=== PATIENT | male | born 1945 | race Caucasian/White ===

== ENCOUNTER 2016-09-27 18:26 | Inpatient (IN) | payer OTHER, MEDICARE ==
[~2016-09-27] VITALS: Ht 182.9 cm; Wt 102.2 kg
[2016-09-27 18:38] VITALS: BP 167/81; PULSE 66; RESP 16; O2SAT 97
--- NOTE | 2016-09-27 18:52 | ED.REPORT ---
HPI-General Illness Date of Service Sep 27, 2016 ED Provider: Dr. Villegas Pt is a 71 y/o male w/ a hx of BPH presenting to the ED due to flu-like symptoms onset this morning. Pt recently had a TURP procedure performed on Sep 19, [address] Jaeger of [facility] and had his urinary catheter removed yesterday. This morning he began experiencing dysuria, urinary frequency , urinary urgency, myalgias, fever, chills, dry cough, nausea, mild headache, irregular heart palpations. He denies vomiting, diarrhea. He denies any history of irregular heart rhythm. Nursing Notes Stated Complaint: CHEST,NECK,LEG PAIN POST SURGERY Chief Complaint: General Complaint Nursing Notes Reviewed: Yes Allergies: Coded Allergies: allopurinol (Verified Adverse Reaction, Intermediate, NAUSEA, 09/28/16) Uncoded Allergies: ALLUPURINAL (Adverse Reaction, Intermediate, nausea, 09/27/16) Scheduled Aspirin (Aspirin) 81 Mg Tablet 81 MG PO DAILY Atenolol (Atenolol) 100 Mg Tablet 100 MG PO DAILY Cephalexin (Keflex) 500 Mg Capsule 500 MG PO QID Lisinopril (Lisinopril) 20 Mg Tablet 20 MG PO DAILY Lovastatin (Lovastatin) 20 Mg Tablet 20 MG PO HS Omeprazole (Omeprazole) 20 Mg Capsule.dr 20 MG PO DAILY Ondansetron (Ondansetron) 8 Mg Tablet 8 MG PO TID Tamsulosin (Flomax) 0.4 Mg Capsule 0.8 MG PO HS Scheduled PRN Ibuprofen (Ibuprofen) 200 Mg Capsule 200 MG PO QID PRN PRN For Pain General Time Seen by MD: 18:52 Chief Complaint Other (Flu-like) Hx Obtained From: Patient Arrived By: Walk-in Sudden in Onset?: No Onset Occurred: 13 - 16 hours ago Symptom Duration: Since onset Quality: Aching (diffuse) Severity: Current: Mild Severity: Maximum: Mild Recent Healthcare: Previous surgery Past Medical History Past Medical History BPH s/p TURP Benign lung tumor s/p surgical removal Hx SBO Past Surgical History Benign lung tumor removal TURP Partial small bowel resection Smoking History Unknown if Ever Smoker Social History Other Social History: Good social support Ambulatory Status Independent Review of Systems Full Review of Systems Constitutional: Reports: Chills, Fever, Weakness - generalized Respiratory: Reports: Non-productive cough GI: Reports: Nausea, Denies: Diarrhea, Vomiting Male: Reports Dysuria, Reports Urinary frequency, Reports Urinary urgency Musculoskeletal: Reports: Myalgia Neurologic: Reports: Headache Complete sys rev & neg: except as marked. Physical Exam Vital Signs Vital Signs Date Time Temp Pulse Resp B/P Pulse Ox O2 Delivery O2 Flow Rate FiO2 09/27/16 22:51 36.9 93 18 103/66 93 Room Air 09/27/16 21:22 37 111 16 108/62 93 Room Air 09/27/16 18:38 38.8 66 16 167/81 97 Room Air Initial VS: Reviewed, Vital signs abnormal Head / Eyes: Atraumatic, Normocephalic, PERRL ENT: Mucous membranes moist, Conjunctiva normal, No scleral icterus Neck: Supple, Full range of motion Respiratory: Breath sounds normal, Clear to auscultation, No respiratory distress Extremities: Vascular intact, Neuro intact, No swelling, No tenderness Skin: Warm, Dry Neurologic: Alert, Oriented, Nonfocal Psychiatric: Mood/affect normal, Behavior normal, Normal thought content General/Constitutional: Awake, Alert, No acute distress, Cooperative, Not toxic appearing Cardiovascular: Heart sounds NL, No gallop, No murmurs, No rubs, Cap refill not delayed, Peripheral circulation NL Heart Rate / Rhythm: Positive: Irregular rhythm, Tachycardia Abdomen: Atraumatic, Soft, Non-tender, No guarding, No distention, No palpable mass Tenderness/Guarding/Rebound: Negative: Tender flank L, Tender flank R Back: Full range of motion, Painless range of motion, No CVA tenderness Interpretation & Diagnostics Lab Results Interpretation Result Diagram: 10/01/16 0540 10/01/16 0540 Test 09/27/16 19:05 Urine Color Yellow (YELLOW) Urine Appearance Cloudy (CLEAR,HAZY) Urine pH 7.5 (5.0-8.0) Urine Specific [place] 1.020 (1.003-1.035) Urine Protein 100mg/dL (NEG,TRACE) Urine Glucose (UA) Negativemg/dL (NEGATIVE) Urine Ketones Negativemg/dL (NEGATIVE) Urine Occult Blood Large (NEGATIVE) Urine Nitrite Negative (NEGATIVE) Urine Bilirubin Negative (NEGATIVE) Urine Urobilinogen Normalmg/dL (NORMAL) Urine Leukocyte Esterase Moderate (NEGATIVE) Urine RBC 3-10/hpf (0-2) Urine WBC 6-10/hpf (0-5) Urine Epithelial Cells None/hpf (NONE-MOD) Urine Crystals None seen (NONE SEEN) Urine Bacteria Few/hpf (NONE-FEW) Urine Hyaline Casts None/lpf (NONE) Urine Granular Casts None seen (NONE SEEN) Urine Waxy Casts None seen (NONE SEEN) Urine Red Blood Cell Casts None seen (NONE SEEN) Urine White Blood Cell Casts None seen (NONE SEEN) Urine Mucus None seen (None Seen) Urine Trichomonas None seen (NONE SEEN) Urine Yeast None (NONE SEEN) Urinalysis Comment None Urine Culture Reflexed Indicated Pro-B-Type Natriuretic Peptide 154.8pg/mL (0-376) Hold [place] Top Tube Received (Received) ECG Interpretation ECG Interpretation: Sinus tachycardia rate 127 Supraventricular bigeminy RBBB LAFB Time: 19:44 Interpreted by: ED physician Normal ECG Interpretation: No acute ischemic changes X-Ray Chest Interpretation Chest Xray Interpretation: IMPRESSION: Decreased lung volumes, without acute cardiopulmonary disease. Dictated by: Thomas Cehn M.D. on 09/27/2016 at 20:20 Approved by: Thomas Chen M.D. on 09/27/2016 at 20:20 View: Portable, AP & lat Interpretation / Wet Read by: Interpret - Radiologist CT Abd / Pelvis Interpretation Conclusion: Findings likely consistent with cystitis. Air in the bladder likely related to the patient's recent surgery. Nodular enlarged prostate which appears to project into the lumen of the bladder. Recommend followup to exclude neoplasm. Left adrenal mass which requires followup. Other findings as noted above. Transmitted to the ED by Ed Lawson MD [id number] Study type: Abdominal CT IV contrast Interpretation / Wet Read by: Interpret - Radiologist, Discussed w radiologist Re-Eval/Medical Decision Time of Eval: 22:08 Patient Status: Condition improved, Moderate relief Re-Evaluation/Progress Note: Pt rechecked. He is feeling better but does not feel well enough to go home. Remains tachycardic at rate 90-110 and hypotensive at systolic 100-110. O2 sat 93% on room air. I recommended admission. Pt understands and agrees with plan for admission. All questions addressed. Consultation #1: Consulted With: Urology Call Returned at: 23:36 Swing Saw Operator: Agrees with eval, Agrees with plan Note: Discussed case with Urologist Dr. Diehl, who is environmental engineer scientist for Dr. Jaeger. Agrees with plan for admit and antibiotic choice. He will see the patient for outpatient follow-up once discharged. Consultation #2: Referral / Consult Name: Analilia Iraheta MD Consulted With: Hospitalist Call Returned at: 23:46 Swing Saw Operator: Will see patient, Agrees with eval, Agrees with plan, Accepts admit Note: Case discussed. Counseled Regarding: Diagnosis, Lab results, Need for admission Discharge & Departure Primary Impression: Sepsis Sepsis type: sepsis due to unspecified organism Qualified Code: A41.9 - Sepsis, unspecified organism Additional Impressions: Cystitis Supraventricular bigeminy Right bundle branch block Disposition: ADMITTED TO HOSPITAL Discharge Condition All VS Reviewed: Yes Condition: Stable Referrals: Abraham Paul MD (PCP) Nick Attestation Portions of this note were transcribed by Kamron Avila. I, Dr. Villegas personally performed the history, physical exam and medical decision-making; I reviewed and confirmed the accuracy of the information in the transcribed note. Nick Mendieta, 09/27/161934 copies to: Abraham Paul MD, Gary R DO Sep 27, 2016 18:52 KAMRON AVILA Sep 27, 2016 19:47 Hold [place] Top Tube Received (Received) ECG Interpretation ECG Interpretation: Sinus tachycardia rate 127 Supraventricular bigeminy RBBB LAFB Time: 19:44 Interpreted by: ED physician Normal ECG Interpretation: No acute ischemic changes X-Ray Chest Interpretation Chest Xray Interpretation: IMPRESSION: Decreased lung volumes, without acute cardiopulmonary disease. Dictated by: Thomas Chen M.D. on 09/27/2016 at 20:20 Approved by: Thomas Chen M.D. on 09/27/2016 at 20:20 View: Portable, AP & lat Interpretation / Wet Read by: Interpret - Radiologist CT Abd / Pelvis Interpretation Conclusion: Findings likely consistent with cystitis. Air in the bladder likely related to the patient's recent surgery. Nodular enlarged prostate which appears to project into the lumen of the bladder. Recommend followup to exclude neoplasm. Left adrenal mass which requires followup. Other findings as noted above. Transmitted to the ED by Ed Lawson MD [id number] Study type: Abdominal CT IV contrast Interpretation / Wet Read by: Interpret - Radiologist, Discussed w radiologist Re-Eval/Medical Decision Time of Eval: 22:08 Patient Status: Condition improved, Moderate relief Re-Evaluation/Progress Note: Pt rechecked. He is feeling better but does not feel well enough to go home. Remains tachycardic at rate 90-110 and hypotensive at systolic 100-110. O2 sat 93% on room air. I recommended admission. Pt understands and agrees with plan for admission. All questions addressed. Consultation #1: Consulted With: Urology Call Returned at: 23:36 Swing Saw Operator: Agrees with eval, Agrees with plan Note: Discussed case with Urologist Dr. Diehl, who is environmental engineer scientist for Dr. Jaeger. Agrees with plan for admit and antibiotic choice. He will see the patient for outpatient follow-up once discharged. Consultation #2: Referral / Consult Name: Analilia Iraheta MD Consulted With: Hospitalist Call Returned at: 23:46 Swing Saw Operator: Will see patient, Agrees with eval, Agrees with plan, Accepts admit Note: Case discussed. Counseled Regarding: Diagnosis, Lab results, Need for admission Discharge & Departure Primary Impression: Sepsis Sepsis type: sepsis due to unspecified organism Qualified Code: A41.9 - Sepsis, unspecified organism Additional Impressions: Cystitis Supraventricular bigeminy Right bundle branch block Disposition: ADMITTED TO HOSPITAL Discharge Condition All VS Reviewed: Yes Condition: Stable Referrals: Abraham Paul MD (PCP) Nick Attestation Portions of this note were transcribed by Kamron Avila. I, Dr. Villegas personally performed the history, physical exam and medical decision-making; I reviewed and confirmed the accuracy of the information in the transcribed note. Nick Mendieta, 09/27/161934 copies to: Abraham Paul MD, Gary R DO Sep 27, 2016 18:52 KAMRON AVILA Sep 27, 2016 19:47
[2016-09-27 19:14] LABS: BASOPHILS % (AUTO) 0.1 % (0-3); EOSINOPHILS % (AUTO) 0.1 % (0-5); MONOCYTES % (AUTO) 7.7 % (4-12); Mean Corpuscular Hemoglobin 27.9 pg (27.0-35.0); Mean Corpuscular Volume 83.8 fL (81-100); NEUTROPHILS % (AUTO) 87.7 % (40-74); Platelet Count 229 bil/L (150-400)
[2016-09-27] MEDS ORDERED: cefTRIAXone Inj 1,000 MG in IV Premix 1 EACH IV ONE (19:35)
[2016-09-27] MEDS ORDERED: 0.9% Sodium Chloride 1,000 ML IV ONE ×2 (19:49→22:11)
[2016-09-27 20:06] LABS: APPEARANCE,URINE CLOUDY (CLEAR,HAZY); COLOR,URINE YELLOW (YELLOW); OCCULT BLOOD,URINE LARGE (NEGATIVE); PH,URINE 7.5 (5.0-8.0); UROBILINOGEN,URINE NORMAL (NORMAL)
[2016-09-27 20:17] LABS: TROPONIN T < 0.010 ug/L (0.0-0.011)
--- NOTE | 2016-09-27 20:22 | DRSVH ---
PROCEDURE: X-RAY CHEST, TWO VIEWS ([id number]) INDICATIONS: 71 year-old male with fever and cough for several days. TECHNIQUE: 2 views of the chest were acquired. COMPARISON: None. FINDINGS: Surgical changes and devices: None. Lungs and pleura: No pleural effusions or pneumothorax. Lungs are clear. Lung volumes are decrease d, with basilar bronchovascular crowding. Mediastinum: Mediastinal contours are normal. Heart size is normal. Bones and chest wall: No suspicious bony abnormalities. Soft tissues appear unremarkable. IMPRESSION: Decreased lung volumes, without acute cardiopulmonary disease. Dictated by: Thomas Chen M.D. on 09/27/2016 at 20:20 Approved by: Thomas Chen M.D. on 09/27/2016 at 20:20
[2016-09-27 21:22] VITALS: BP 108/62; PULSE 111; RESP 16; O2SAT 93
[2016-09-27] MEDS ORDERED: Ondansetron 2 mg/mL 2 mL Inj IVPUSH ONE (21:25)
[2016-09-27 22:51] VITALS: BP 103/66; PULSE 93; RESP 18; O2SAT 93
[2016-09-28] VITALS (8 sets, daily range): BP systolic 107–135; BP diastolic 56–78; PULSE 67–80; RESP 18–20; O2SAT 91–96
[2016-09-28] MEDS ORDERED: 0.9% Sodium Chloride 1,000 ML IV SCH (00:53)
[2016-09-28] MEDS ORDERED: Ondansetron 2 mg/mL 2 mL Inj IVPUSH PRN (00:55)
[2016-09-28] MEDS ORDERED: Vancomycin Dose per Pharmacist XX SCH (00:55)
[2016-09-28] MEDS ORDERED: Alum-Mag Hydrox-Simeth 30 mL Suspension PO PRN (00:55)
[2016-09-28] MEDS ORDERED: Polyethylene Glycol (PEG) 17 Gm Powder PO PRN (00:55)
[2016-09-28] MEDS: 0.9% Sodium Chloride 1,000 ML IV SCH ×3 (01:30→23:27)
[2016-09-28] MEDS: Heparin 5,000 Unit/mL Inj SUBQ SCH ×4 (01:31→23:27)
--- NOTE | 2016-09-28 01:32 | PCM.HPMED ---
Subjective Date of Service Sep 28, 2016 Primary Provider: Admitting Physician: Analilia Iraheta MD Primary Care Physician: Abraham Paul MD Attending Physician: Analilia Iraheta MD Admit Status: From the Emergency Department, Full Admit, Remote Telemetry Chief Complaint: Fevers and chills which started yesterday History of Present Illness: This is a 71-year-old male who has a history of BPH who had a TURP procedure done on September [address] Jaeger of [facility]. He had his Agu[place] catheter removed today prior to admission. He had been on 6 weeks of by mouth Cipro and took his last dose yesterday. He does have some urinary frequency and burning although was not sure whether that is related to his recent procedure. He has had some mild nausea denies any vomiting denies any alteration in bowel movements. Denies any abdominal pain. His evaluation in the emergency room includes a white blood cell count of 21.2 with 88% polys 4% lymphs. His urine shows cloudy appearance large occult blood moderate leukocyte esterase 3-10 RBCs, 6-10 WBCs no epithelial cells and few bacteria. Lactate level was noted to be 1.6 and troponin less than 0.010. He does complain of a dry cough but he notes that is up from being on lisinopril. He also had a chest x-ray which did not show any acute cardiopulmonary disease. He did have CT of abdomen and pelvis with IV contrast which revealed findings likely consistent with cystitis. There was air in the bladder likely related to the patient's recent surgery. There is nodular enlarged prostate which appears to project into the lumen of the bladder. There is a left adrenal mass seen which radiology recommended follow-up on final report is pending. Review of Systems: All other review of systems are reviewed and are negative except for as in history of present illness Allergies Coded Allergies: allopurinol (Unverified Adverse Reaction, Intermediate, NAUSEA, 09/28/16) Uncoded Allergies: ALLUPURINAL (Adverse Reaction, Intermediate, nausea, 09/27/16) Home Medications Medication reconciliation is pending at the time of this dictation PMH Past Medical History BPH s/p TURP Benign lung tumor s/p surgical removal Hx SBO Past Surgical History Benign lung tumor removal TURP Partial small bowel resection Family History Patient denies any cardiac, neurological respiratory family medical history Social History Hx Alcohol Use: No Hx Substance Use: No Smoking Status: Unknown if Ever Smoker Living Arrangement: with Family Exam Vital Signs Vital Sign - Last Date Time Temp Pulse Resp B/P Pulse Ox O2 Delivery O2 Flow Rate FiO2 09/27/16 22:51 36.9 93 18 103/66 93 Room Air Intake and Output 09/27/16 09/27/16 09/28/16 Cumulative From/Thru 15:00 23:00 07:00 09/27/16 18:38 - 09/27/16 22:32 Intake Total 2000 ml 2000 ml Balance 2000 ml 2000 ml Intake IV Total 2000 ml 2000 ml Exam Constitutional: Elderly man in no acute distress Head: Normocephalic atraumatic Eyes: PERRLA DC EOMI Mouth: No lesions noted Neck: Carotids 2+ over 4 the upper wheeze bilaterally Chest: Clear to auscultation Cor tachycardic regular rhythm S1-S2 without murmur Abdomen: Soft, nontender bowel sounds present Extremities: No pedal edema noted Skin: No rashes Psych: Mood and affect are appropriate Neuro: Alert and oriented 3, motor and sensory are intact bilaterally Lab and Diagnostics Labs Laboratory Tests 72 Hours Test 09/27/16 19:05 White Blood Count 21.2th/mm3 (3.8-10.1) Red Blood Count 4.87mil/mm3 (4.40-5.80) Hemoglobin 13.6g/dL (13.8-17.2) Hematocrit 40.8% (41.0-50.0) Mean Corpuscular Volume 83.8fL (81-100) Mean Corpuscular Hemoglobin 27.9pg (27.0-35.0) Mean Corpuscular Hemoglobin Concent 33.3% (32.0-37.0) Red Cell Distribution Width 14.2% (12.3-15.4) Platelet Count 229bil/L (150-400) Neutrophils (%) (Auto) 87.7% (40-74) Lymphocytes (%) (Auto) 4.1% (14-46) Monocytes (%) (Auto) 7.7% (4-12) Eosinophils (%) (Auto) 0.1% (0-5) Basophils (%) (Auto) 0.1% (0-3) Urine Color Yellow (YELLOW) Urine Appearance Cloudy (CLEAR,HAZY) Urine pH 7.5 (5.0-8.0) Urine Specific [place] 1.020 (1.003-1.035) Urine Protein 100mg/dL (NEG,TRACE) Urine Glucose (UA) Negativemg/dL (NEGATIVE) Urine Ketones Negativemg/dL (NEGATIVE) Urine Occult Blood Large (NEGATIVE) Urine Nitrite Negative (NEGATIVE) Urine Bilirubin Negative (NEGATIVE) Urine Urobilinogen Normalmg/dL (NORMAL) Urine Leukocyte Esterase Moderate (NEGATIVE) Urine RBC 3-10/hpf (0-2) Urine WBC 6-10/hpf (0-5) Urine Epithelial Cells None/hpf (NONE-MOD) Urine Crystals None seen (NONE SEEN) Urine Bacteria Few/hpf (NONE-FEW) Urine Hyaline Casts None/lpf (NONE) Urine Granular Casts None seen (NONE SEEN) Urine Waxy Casts None seen (NONE SEEN) Urine Red Blood Cell Casts None seen (NONE SEEN) Urine White Blood Cell Casts None seen (NONE SEEN) Urine Mucus None seen (None Seen) Urine Trichomonas None seen (NONE SEEN) Urine Yeast None (NONE SEEN) Urinalysis Comment None Urine Culture Reflexed Indicated Sodium Level 135mEq/L (134-144) Potassium Level 3.9mEq/L (3.5-5.2) Chloride Level 99mEq/L (97-108) Carbon Dioxide Level 23mmol/L (18-29) Blood Urea Nitrogen 14mg/dL (8-27) Creatinine 0.96mg/dL (0.76-1.27) Estimat Glomerular Filtration Rate 83mL/min (>59) Glucose Level 145mg/dL (60-99) Lactic Acid Level 1.6mmol/L (0.4-2.0) Calcium Level 9.4mg/dL (8.5-10.1) Total Bilirubin 0.9mg/dL (0.0-1.2) Aspartate Amino Transf (AST/SGOT) 28U/L (0-50) Alanine Aminotransferase (ALT/SGPT) 38U/L (0-44) Alkaline Phosphatase 91U/L (25-160) Troponin T < 0.010ug/L (0.0-0.011) Pro-B-Type Natriuretic Peptide 154.8pg/mL (0-376) Total Protein 6.6g/dL (6.4-8.4) Albumin 3.7g/dL (3.4-5.0) Hold [place]ev[place] Top Tube Received (Received) Result Diagram: 09/27/16190409/27/161904 X-Rays, CTs and MRIs Patient Name: JUAN GARCIA MR#: [id number] [place] [facility] [place] Phys: He Villegas Date of Service: 09/27/161948 PROCEDURE: X-RAY CHEST, TWO VIEWS ([id number]) INDICATIONS: 71 year-old male with fever and cough for several days. TECHNIQUE: 2 views of the chest were acquired. COMPARISON: None. FINDINGS: Surgical changes and devices: None. Lungs and pleura: No pleural effusions or pneumothorax. Lungs are clear. Lung volumes are decreased, with basilar bronchovascular crowding. Mediastinum: Mediastinal contours are normal. Heart size is normal. Bones and chest wall: No suspicious bony abnormalities. Soft tissues appear unremarkable. IMPRESSION: Decreased lung volumes, without acute cardiopulmonary disease. Dictated by: Thomas Chen M.D. on 09/27/2016 at 20:20 Approved by: Thomas Chen M.D. on 09/27/2016 at 20:20 12-lead ECG Twelve-lead EKG shows sinus tachycardia rate of 127 there appears to be some supraventricular bigeminy noted along with right bundle branch block and left anterior fascicular block. No old EKG present for comparison. Assessment & Plan # Sepsis with urinary tract infection as source, acute, present on admission Placed on sepsis protocol check serial lactic acid levels first one was normal. IV fluid hydration We will treat with IV Rocephin and IV vancomycin as patient recently had a urological procedure done. Blood cultures 2. Urine for culture and sensitivities Patient meets sepsis criteria as he is tachycardic, febrile along with significantly elevated white count. Patient was discussed by the ER doctor with Dr. Leach covering for urology and recommended IV antibiotics. Dr. Leach agreed with IV Rocephin. # Hypertension, present on admission, chronic Overweight medication reconciliation to put on his usual home meds. Will monitor blood pressures. # DVT prophylaxis Placed on subcutaneous heparin # CODE STATUS Patient is full code. Pain Evaluation: Adequate Pain Control VTE Prophylaxis: Sub-Q Heparin (Unfractionated) VTE Mechanical Devices: Intermittant Pneumatic CD Resuscitation Status: CPR: Attempt Resuscitation Time spent 60 minutes Analilia Iraheta MD Sep 28, 2016 01:32
[2016-09-28 01:53] LABS: BASOPHILS % (AUTO) 0 % (0-3); EOSINOPHILS % (AUTO) 0 % (0-5); MONOCYTES % (AUTO) 8.7 % (4-12); Mean Corpuscular Volume 84.7 fL (81-100); NEUTROPHILS % (AUTO) 87.6 % (40-74); Platelet Count 215 bil/L (150-400)
[2016-09-28 02:39] LABS: Magnesium 1.5 mg/dL (1.6-2.6); Phosphorus 3.2 mg/dL (2.5-4.9); TROPONIN T 0.01 ug/L (0.0-0.011)
--- NOTE | 2016-09-28 03:36 | PCM.CONPHA ---
Subjective Date of Service: Sep 28, 2016 Requesting Provider: Analilia Iraheta MD Reason for Pharmacy Consult: Vancomycin Dosing Objective Vital Signs Date Time Temp Pulse Resp B/P Pulse Ox O2 Delivery O2 Flow Rate FiO2 09/28/16 01:27 36.7 78 19 107/63 91 Room Air 09/28/16 01:15 36.7 80 18 126/58 95 Room Air 09/27/16 22:51 36.9 93 18 103/66 93 Room Air 09/27/16 21:22 37 111 16 108/62 93 Room Air 09/27/16 18:38 38.8 66 16 167/81 97 Room Air Intake and Output 09/26/16 09/27/16 09/28/16 00:00 00:00 00:00 Intake Total 2000 ml Balance 2000 ml Weight (Kilograms): 101.600 Height (Feet): 6 Height (Inches): 0.00 Test 09/27/16 19:05 09/28/16 01:40 09/28/16 02:18 Urine Color Yellow (YELLOW) Urine Appearance Cloudy (CLEAR,HAZY) Urine pH 7.5 (5.0-8.0) Urine Specific [place] 1.020 (1.003-1.035) Urine Protein 100mg/dL (NEG,TRACE) Urine Glucose (UA) Negativemg/dL (NEGATIVE) Urine Ketones Negativemg/dL (NEGATIVE) Urine Occult Blood Large (NEGATIVE) Urine Nitrite Negative (NEGATIVE) Urine Bilirubin Negative (NEGATIVE) Urine Urobilinogen Normalmg/dL (NORMAL) Urine Leukocyte Esterase Moderate (NEGATIVE) Urine RBC 3-10/hpf (0-2) Urine WBC 6-10/hpf (0-5) Urine Epithelial Cells None/hpf (NONE-MOD) Urine Crystals None seen (NONE SEEN) Urine Bacteria Few/hpf (NONE-FEW) Urine Hyaline Casts None/lpf (NONE) Urine Granular Casts None seen (NONE SEEN) Urine Waxy Casts None seen (NONE SEEN) Urine Red Blood Cell Casts None seen (NONE SEEN) Urine White Blood Cell Casts None seen (NONE SEEN) Urine Mucus None seen (None Seen) Urine Trichomonas None seen (NONE SEEN) Urine Yeast None (NONE SEEN) Urinalysis Comment None Urine Culture Reflexed Indicated Pro-B-Type Natriuretic Peptide 154.8pg/mL (0-376) Hold [place] Top Tube Received (Received) White Blood Count 25.8th/mm3 (3.8-10.1) Red Blood Count 4.32mil/mm3 (4.40-5.80) Hemoglobin 12.1g/dL (13.8-17.2) Hematocrit 36.6% (41.0-50.0) Mean Corpuscular Volume 84.7fL (81-100) Mean Corpuscular Hemoglobin 28.0pg (27.0-35.0) Mean Corpuscular Hemoglobin Concent 33.1% (32.0-37.0) Red Cell Distribution Width 14.1% (12.3-15.4) Platelet Count 215bil/L (150-400) Neutrophils (%) (Auto) 87.6% (40-74) Lymphocytes (%) (Auto) 3.2% (14-46) Monocytes (%) (Auto) 8.7% (4-12) Eosinophils (%) (Auto) 0% (0-5) Basophils (%) (Auto) 0% (0-3) Sodium Level 137mEq/L (134-144) Potassium Level 4.0mEq/L (3.5-5.2) Chloride Level 102mEq/L (97-108) Carbon Dioxide Level 23mmol/L (18-29) Blood Urea Nitrogen 12mg/dL (8-27) Creatinine 0.96mg/dL (0.76-1.27) Estimat Glomerular Filtration Rate 83mL/min (>59) Glucose Level 135mg/dL (60-99) Calcium Level 8.8mg/dL (8.5-10.1) Phosphorus Level 3.2mg/dL (2.5-4.9) Magnesium Level 1.5mg/dL (1.6-2.6) Total Bilirubin 1.4mg/dL (0.0-1.2) Aspartate Amino Transf (AST/SGOT) 25U/L (0-50) Alanine Aminotransferase (ALT/SGPT) 40U/L (0-44) Alkaline Phosphatase 79U/L (25-160) Troponin T 0.010ug/L (0.0-0.011) Total Protein 5.5g/dL (6.4-8.4) Albumin 3.2g/dL (3.4-5.0) Lactic Acid Level 1.5mmol/L (0.4-2.0) Assessment/Plan Assessment/Plan A: * Empiric vancomycin dosing by pharmacy for 71 y/o man with sepsis with UTI as source * He is also being started on ceftriaxone * Estimated CrCl for the patient is 80 mL/min (Cockcroft & Gault) * Estimated vancomycin half-life is 10 hour and estimated Vd is 71 liters P: * Give one vancomycin 2000 mg IV loading dose * Continue with vancomycin 1500 mg IV every 12 hours * This dose is estimated to result in a trough of about 17 mcg/mL * Target vancomycin trough range of 15 - 20 mcg/mL for now * Drawing a trough level prior to the fourth dose Thank you. Pharmacy will continue to follow. Vira Luna, PharmD Vira Luna Sep 28, 2016 03:36
--- NOTE | 2016-09-28 06:41 | NUR ---
Admit Patient admitted to room at 0145. Patient alert x 3, denied any pain or SOB. Patient did not bring medication list and [facility] pharmacy has been sent a request for medications.
--- NOTE | 2016-09-28 07:10 | DRSVH ---
PROCEDURE: CT ABDOMEN AND PELVIS WITH CONTRAST ([id number]) INDICATIONS: sepsis, abn UA, ?pyelo TECHNIQUE: After the administration of intravenous contrast, 5 mm thick sections acquired from the diaphragm to the symphysis. 5 mm coronal and sagittal reformats were acquired. For radiation dose reduction, the following was used: automated exposure control, adjustment of mA and/or kV according to patient siz e. COMPARISON: None. FINDINGS: Image quality: Excellent. ABDOMEN: Lung bases: Lung bases are clear. Heart size is normal. Solid organs: Liver and spleen are normal in size and enhancement. Hepatic cysts noted. Gallbladde r contains small gallstones. Biliary system is non dilated. Pancreas enhances normally. 2.1 cm left adrenal nodule is noted which has density measurements of 36 HU. Kidneys demonstrate normal size an d enhancement, without hydronephrosis. Renal cysts are noted. Peritoneum and bowel: Bowel loops demonstrate normal wall thickness and caliber. No free fluid or a ir. Appendix is fluid-filled. Appendix is enlarged measuring up to 1.4 cm in diameter. No periappen diceal inflammatory change. No wall thickening identified in the appendix. No free fluid noted cecelia cent to the appendix. Multiple diverticuli noted in the colon without evidence of diverticulitis. Nodes and vessels: No retroperitoneal or mesenteric adenopathy by size criteria. Aorta and inferior vena cava are normal in size. Miscellaneous: No ventral hernias. PELVIS: Genitourinary: Mild, circumferential urinary bladder wall thickening is noted. Small amount of air is noted urinary bladder which could be related to recent catheterization, infection with gas-forming organism or fistulous connection with bowel. Prostate is enlarged. The superior margin of the medi an lobe of the prostate gland is irregular which could be postsurgical or neoplastic. Please correla te with clinical history. Miscellaneous: No adenopathy. Fat containing left inguinal hernia is noted. Bones: No suspicious bony lesions. No vertebral body compression fractures. Spine degenerative dise ase and facet arthropathy are noted. IMPRESSION: 1. Fluid filled appendix is enlarged to 1.4 cm in diameter with absence of associated periappendicea l inflammation and periappendiceal fluid. Early acute appendicitis is not excluded. Please correlat e with clinical data. 2. Marked prostatic hypertrophy. Superior margin of the prostate gland is nodular and irregular in appearance which could be postsurgical or neoplastic. Please correlate with clinical data. 3. Colonic diverticulosis without evidence diverticulitis. 4. Cholelithiasis. 5. Atherosclerosis. 6. 2.1 cm left adrenal nodule. Recommend dedicated CT scan or MRI of the adrenal and for definitive characterization. 7. Air in the urinary bladder which could be related to recent catheterization, infection or fistulo us connection with bowel. Please correlate with clinical data. Dictated by: Simona Ray MD, PhD on 09/28/2016 at 7:08 Approved by: Simona Ray MD, PhD on 09/28/2016 at 7:08
[2016-09-28] MEDS: cefTRIAXone Inj 2,000 MG in IV Premix 1 EACH IV SCH (07:51)
[2016-09-28] MEDS: Sodium Chloride LOK Flush 10 mL Syringe IVFLUSH SCH ×3 (07:52→23:27)
--- NOTE | 2016-09-28 10:46 | NUR ---
Social Work-initial assessment: Data:See initial assessment. Pt is a 71 y/o male who was admitted on 09/28/16 for cystitis per H&P. Pt's insurance is [employer] out of State and PCP is Abraham Paul MD. EMR Reviewed. SW met with pt at bedside to discuss discharge planning, SW role explained. Pt is alert and oriented x3. Pt resides at home with his where he remains independent with ADls. Pt does not use any DME and drives. pt has no HH or SNF history. Pt has no shelter care insurance or VA benefits. SW discussed DPOA/advanced directive with pt, pt states he has completed this, SW encouraged pt to bring in a copy. Per RN notes in care trends, pt has been up independent in his room- no PT needs indicated. Pt states his will provide transport home at discharge. SW provided phone number and plan on white board in room. No anticipated discharge needs. SW will continue to follow if needs arise. Assessment:Pt who is independent at baseline. Plan:Pt to discharge home when medically stable via POV. No anticipated discharge needs. SW will continue to follow if needs arise. JESUS Khoury Addendum: 09/28/16 at 1050 by YUE BATISTA Amended: Links added.
[2016-09-28] MEDS ORDERED: ASPI-973 PO (13:16)
[2016-09-28] MEDS ORDERED: ATEN100T PO (13:17)
[2016-09-28] MEDS ORDERED: TAMS0.4C98 PO (13:17)
[2016-09-28] MEDS ORDERED: LOVA20TA PO (13:18)
[2016-09-28] MEDS ORDERED: OMEP20CA11 PO (13:18)
[2016-09-28] MEDS ORDERED: LISI-567 PO (13:18)
[2016-09-28] MEDS ORDERED: IBUP200C PO (13:20)
--- NOTE | 2016-09-28 15:36 | PCM.PNMED ---
Subjective Date of Service Sep 28, 2016 Subjective Quick pharmacy picking tech note, patient is feeling better. Less dysuria Exam Vital Signs Vital Sign - Last Date Time Temp Pulse Resp B/P Pulse Ox O2 Delivery O2 Flow Rate FiO2 09/28/16 13:02 36.8 73 18 129/62 96 Room Air Intake and Output 09/27/16 09/27/16 09/28/16 Cumulative From/Thru 15:00 23:00 07:00 09/27/16 18:38 - 09/28/16 05:36 Intake Total 2000 ml 200 ml 2200 ml Output Total 300 ml 300 ml Balance 2000 ml -100 ml 1900 ml Intake Oral 200 ml 200 ml IV Total 2000 ml 2000 ml Output Urine Total 300 ml 300 ml Exam General: Alert, Oriented X3, NAD Head: Normocephalic, atraumatic Eyes: VIJAY, EOMI, no scleral Icterus Chest: clear to auscultation B/L, no wheezing rales or rhonchi Heart: Regular rate and rhythm. Normal S1, S2, no murmurs noted Abdomen: soft, non-tender. Bowel sounds are normoactive. No guarding or rebound. Extremities: no cyanosis, clubbing or edema. Lab and Diagnostics Result Diagram: 09/28/1613909/28/16 014 X-Rays, CTs and MRIs Patient Name: JUAN GARCIA MR#: [id number] Location: [facility] [place] Ordering Phys: He Villegas DO Date of Service: 09/27/161948 PROCEDURE: X-RAY CHEST, TWO VIEWS ([id number]) INDICATIONS: 71 year-old male with fever and cough for several days. TECHNIQUE: 2 views of the chest were acquired. COMPARISON: None. FINDINGS: Surgical changes and devices: None. Lungs and pleura: No pleural effusions or pneumothorax. Lungs are clear. Lung volumes are decreased, with basilar bronchovascular crowding. Mediastinum: Mediastinal contours are normal. Heart size is normal. Bones and chest wall: No suspicious bony abnormalities. Soft tissues appear unremarkable. IMPRESSION: Decreased lung volumes, without acute cardiopulmonary disease. Dictated by: Thomas Chen M.D. on 09/27/2016 at 20:20 Approved by: Thomas Chen M.D. on 09/27/2016 at 20:20 12-lead ECG Twelve-lead EKG shows sinus tachycardia rate of 127 there appears to be some supraventricular bigeminy noted along with right bundle branch block and left anterior fascicular block. No old EKG present for comparison. Assessment & Plan # Sepsis with urinary tract infection as source, acute, present on admission IV fluid hydration IV Rocephin and IV vancomycin as patient recently had a urological procedure done. Blood cultures pending Urine for culture and sensitivities pending Patient was discussed by the ER doctor with Dr. Leach covering for urology and recommended IV antibiotics. Dr. Leach agreed with IV Rocephin. # Hypertension, present on admission, chronic -Continue home meds of lisinopril and atenolol #Hyperlipidemia: -Continue statin #Gastroesophageal reflux disease: -Continue PPI. # DVT prophylaxis Placed on subcutaneous heparin # CODE STATUS Patient is full code. VTE Prophylaxis: Sub-Q Heparin (Unfractionated) VTE Mechanical Devices: Intermittant Pneumatic CD Resuscitation Status: CPR: Attempt Resuscitation Ace Sheffield DO Sep 28, 2016 15:36
--- NOTE | 2016-09-28 17:27 | NUR ---
shift note patient reports feeling better today, no fevers during shift. patient reports that he's voiding okay. Tolerating IV antibiotics with side effects. patient states that he's feeling sore from not moving around much last several weeks. patient walked in gage during day shift, stable on feet. continue to monitor.
--- NOTE | 2016-09-28 22:21 | NUR ---
Comfort Pt states he is mildly "achy". He does not want any medication. He reports he is able to rest UP OOB independently. Will cont to monitor
[2016-09-29] MEDS: 0.9% Sodium Chloride 1,000 ML IV SCH ×3 (00:53→18:07)
[2016-09-29 01:02] LABS: BASOPHILS % (AUTO) 0.1 % (0-3); EOSINOPHILS % (AUTO) 0.3 % (0-5); MONOCYTES % (AUTO) 7.6 % (4-12); Mean Corpuscular Hemoglobin 28.2 pg (27.0-35.0); Mean Corpuscular Volume 85.7 fL (81-100); NEUTROPHILS % (AUTO) 83.5 % (40-74); Platelet Count 209 bil/L (150-400)
[2016-09-29 04:50] VITALS: BP 130/74; PULSE 63; RESP 20; O2SAT 96
[2016-09-29] MEDS: Pantoprazole 20 mg ER24 Tablet PO SCH (06:06)
[2016-09-29] MEDS: Heparin 5,000 Unit/mL Inj SUBQ SCH ×2 (08:58→16:36)
[2016-09-29] MEDS: cefTRIAXone Inj 2,000 MG in IV Premix 1 EACH IV SCH (08:58)
[2016-09-29] MEDS: Sodium Chloride LOK Flush 10 mL Syringe IVFLUSH SCH ×2 (08:59→16:36)
[2016-09-29] MEDS ORDERED: Vancomycin Serum Trough XX ONE (12:30)
--- NOTE | 2016-09-29 13:43 | PCM.PNMED ---
Subjective Date of Service Sep 29, 2016 Subjective Patient reports feeling better today, remains afebrile. He is voiding okay. Tolerating IV antibiotics. Stable on feet. Exam Vital Signs Vital Sign - Last Date Time Temp Pulse Resp B/P Pulse Ox O2 Delivery O2 Flow Rate FiO2 09/29/16 04:50 36.6 63 20 130/74 96 Room Air Intake and Output 09/28/16 09/28/16 09/29/16 Cumulative From/Thru 15:00 23:00 07:00 09/27/16 18:38 - 09/29/16 06:00 Intake Total 3373 ml 2194 ml 7767 ml Output Total 1300 ml 1650 ml 3250 ml Balance 2073 ml 544 ml 4517 ml Intake Oral 1240 ml 650 ml 2090 ml IV Total 2133 ml 1544 ml 5677 ml Output Urine Total 1300 ml 1650 ml 3250 ml # Bowel Movements 0 0 Exam General: Alert, Oriented X3, NAD Head: Normocephalic, atraumatic Eyes: VIJAY, EOMI, no scleral Icterus Chest: clear to auscultation B/L, no wheezing rales or rhonchi Heart: Regular rate and rhythm. Normal S1, S2, no murmurs noted Abdomen: soft, non-tender. Bowel sounds are normoactive. No guarding or rebound. Extremities: no cyanosis, clubbing or edema. IVs and Medications IV Fluids NS 125 mls/hr Lab and Diagnostics Result Diagram: 09/29/165309/29/1653 Microbiology Microbiology ISH CULT URINE Final 09/29/16-0830 Organism 1 ESCHERICHIA COLI U COLONY COUNT/QUANTITY >100,000 CFU/ml ESCHERICHIA COLI Cefazolin-predicts results for the oral agents, cefaclor,cefdinir, cefpodoximen, cefprozil, cefuroximne axetil, cephalexin and loracarbed when used for therapy of uncomplicated UTI's due to E. coli, K. pneumoniae, and Proteus mirabilis. Cefpodoxime, cefdinir and cefuroxime axetil may be tested individually because some isolates may be susceptible to these agents while testing resistant to cefazolin. (CLSI [id number] pg 53) 1. ESCHERICHIA COLI M.I.C Interp --------- ------ * AMOXICILLIN/CLAVULATE 8 S * AMPICILLIN >=32 R * CEFAZOLIN (CEPHALOSPORIN) UTI 4 S * CEFEPIME <=1 S * CEFTRIAXONE <=1 S * CEFUROXIME SODIUM 4 S * CIPROFLOXACIN >=4 R * ERTAPENEM <=0.5 S * GENTAMICIN <=1 S * IMIPENEM <=1 S * LEVOFLOXACIN >=8 R * NITROFURANTOIN <=16 S * TETRACYCLINE <=1 S * TOBRAMYCIN <=1 S * TRIMETHOPRIM/SULFAMETHOXAZOLE <=20 S Microbiology ISH CULT URINE Preliminary 09/28/16 PRELIMINARY ID GRAM NEG DEA, PROBABLE E COLI SUSCEPTIBILITIES TO FOLLOW COLONY COUNT/QUANTITY >100,000 CFU/ml Microbiology ISH INFLUENZA RAPID AG SCREEN Final 09/27/16 RESULT NEGATIVE FOR INFLUENZA TYPE A AND B X-Rays, CTs and MRIs PROCEDURE: X-RAY CHEST, TWO VIEWS ([id number]) INDICATIONS: 71 year-old male with fever and cough for several days. TECHNIQUE: 2 views of the chest were acquired. COMPARISON: None. FINDINGS: Surgical changes and devices: None. Lungs and pleura: No pleural effusions or pneumothorax. Lungs are clear. Lung volumes are decreased, with basilar bronchovascular crowding. Mediastinum: Mediastinal contours are normal. Heart size is normal. Bones and chest wall: No suspicious bony abnormalities. Soft tissues appear unremarkable. IMPRESSION: Decreased lung volumes, without acute cardiopulmonary disease. Dictated by: Thomas Chen M.D. on 09/27/2016 at 20:20 Approved by: Thomas Chen M.D. on 09/27/2016 at 20:20 PROCEDURE: CT ABDOMEN AND PELVIS WITH CONTRAST ([id number]) INDICATIONS: sepsis, abn UA, ?pyelo ABDOMEN: Lung bases: Lung bases are clear. Heart size is normal. Solid organs: Liver and spleen are normal in size and enhancement. Hepatic cysts noted. Gallbladder contains small gallstones. Biliary system is non dilated. Pancreas enhances normally. 2.1 cm left adrenal nodule is noted which has density measurements of 36 HU. Kidneys demonstrate normal size and enhancement, without hydronephrosis. Renal cysts are noted. Peritoneum and bowel: Bowel loops demonstrate normal wall thickness and caliber. No free fluid or air. Appendix is fluid-filled. Appendix is enlarged measuring up to 1.4 cm in diameter. No periappendiceal inflammatory change. No wall thickening identified in the appendix. No free fluid noted adjacent to the appendix. Multiple diverticuli noted in the colon without evidence of diverticulitis. Nodes and vessels: No retroperitoneal or mesenteric adenopathy by size criteria. Aorta and inferior vena cava are normal in size. Miscellaneous: No ventral hernias. PELVIS: Genitourinary: Mild, circumferential urinary bladder wall thickening is noted. Small amount of air is noted urinary bladder which could be related to recent catheterization, infection with gas-forming organism or fistulous connection with bowel. Prostate is enlarged. The superior margin of the median lobe of the prostate gland is irregular which could be postsurgical or neoplastic. Please correlate with clinical history. Miscellaneous: No adenopathy. Fat containing left inguinal hernia is noted. Bones: No suspicious bony lesions. No vertebral body compression fractures. Spine degenerative disease and facet arthropathy are noted. IMPRESSION: 1. Fluid filled appendix is enlarged to 1.4 cm in diameter with absence of associated periappendiceal inflammation and periappendiceal fluid. Early acute appendicitis is not excluded. Please correlate with clinical data. 2. Marked prostatic hypertrophy. Superior margin of the prostate gland is nodular and irregular in appearance which could be postsurgical or neoplastic. Please correlate with clinical data. 3. Colonic diverticulosis without evidence diverticulitis. 4. Cholelithiasis. 5. Atherosclerosis. 6. 2.1 cm left adrenal nodule. Recommend dedicated CT scan or MRI of the adrenal and for definitive characterization. 7. Air in the urinary bladder which could be related to recent catheterization , infection or fistulous connection with bowel. Please correlate with clinical data. Dictated by: Simona Ray MD, PhD on 09/28/2016 at 7:08 Approved by: Simona Ray MD, PhD on 09/28/2016 at 7:08 12-lead ECG Twelve-lead EKG: Sinus tachycardia rate of 127 there appears to be some supraventricular bigeminy noted along with right bundle branch block and left anterior fascicular block. No old EKG present for comparison. Assessment & Plan Patient is a 71-year-old male with history of BPH who had a TURP procedure done on September [address] Ja[facility], had his Aguila catheter removed yesterday prior to admission and finished 6 weeks treatment with Cipro. He presented to [facility] ED with some urinary frequency and burning, mild nausea el movements. ED evaluation revealed WBC of 21.2 with 88% polys 4% lymphs; urine showed cloudy appearance large occult blood moderate leukocyte esterase 3-10 RBCs, 6-10 WBCs no epithelial cells and few bacteria; lactate level was noted to be 1.6 and troponin less than 0.010. CT of abdomen and pelvis with IV contrast which revealed findings likely consistent with cystitis. There was air in the bladder likely related to the patient's recent surgery. There is nodular enlarged prostate which appears to project into the lumen of the bladder. There is a left adrenal mass seen which radiology recommended follow-up on final report is pending. Patient was admitted for further evaluation and management. # Sepsis with urinary tract infection as source, acute, present on admission - IV fluid hydration NS 125 mls/hr - Urine culture: E. Coli - Continue IV Rocephin; stop IV vancomycin - Blood cultures pending - Patient was discussed by the ER doctor with Dr. Bard covering for urology and recommended IV antibiotics. Dr. Leach agreed with IV Rocephin - WBC down to 18.4; WBC 21.2 on admission - Will notify Dr. Jaeger about patient's hospitalization per patient's request - Will consult urology # Hypertension, present on admission, chronic -Continue home meds of lisinopril 20 mg and atenolol 100 mg #Hyperlipidemia: -Continue atorvastatin 5 mg #Gastroesophageal reflux disease: -Continue PPI. DVT prophylaxis: Placed on subcutaneous heparin CODE STATUS: Patient is full code. VTE Prophylaxis: Sub-Q Heparin (Unfractionated) VTE Mechanical Devices: Intermittant Pneumatic CD Resuscitation Status: CPR: Attempt Resuscitation Attending Statement The patient was seen and examined together with Dr. Coronel on 09/29/2016 and I agree with the history, exam and plan as outlined in the note above. JESSE CORONEL DO Sep 29, 2016 08:56 Aman Collier MD Sep 29, 2016 20:43
[2016-09-29 15:56] VITALS: BP 118/73; PULSE 53; RESP 18; O2SAT 97
[2016-09-29 21:14] VITALS: BP 142/91; PULSE 65; RESP 20; O2SAT 95
[2016-09-30] MEDS: Sodium Chloride LOK Flush 10 mL Syringe IVFLUSH SCH ×3 (00:17→17:35)
[2016-09-30] MEDS: 0.9% Sodium Chloride 1,000 ML IV SCH ×3 (00:20→17:39)
[2016-09-30] MEDS: Heparin 5,000 Unit/mL Inj SUBQ SCH ×3 (00:21→17:35)
--- NOTE | 2016-09-30 04:39 | NUR ---
Uneventful night Patient denies pain/discomfort. denies frequency/urgency with urination. Patient has been using urinal frequently throughout the night. IVF infusing. patient independent in room. will continue to monitor.
[2016-09-30 05:47] LABS: BASOPHILS % (AUTO) 0.2 % (0-3); EOSINOPHILS % (AUTO) 2.6 % (0-5); MONOCYTES % (AUTO) 10.5 % (4-12); Mean Corpuscular Hemoglobin 27.8 pg (27.0-35.0); NEUTROPHILS % (AUTO) 68.3 % (40-74); Platelet Count 224 bil/L (150-400)
[2016-09-30 05:55] VITALS: BP 143/82; PULSE 60; RESP 20; O2SAT 94
[2016-09-30] MEDS: Pantoprazole 20 mg ER24 Tablet PO SCH (06:24)
[2016-09-30] MEDS: cefTRIAXone Inj 2,000 MG in IV Premix 1 EACH IV SCH (08:41)
--- NOTE | 2016-09-30 13:23 | PCM.PNMED ---
Subjective Date of Service Sep 30, 2016 Subjective No overnight events. Patient is stable. Denies chills, fever, malaise, difficulties urinating, urgency, frequency, burning. He is tolerating IV antibiotic w/o side effects. Exam Vital Signs Vital Sign - Last Date Time Temp Pulse Resp B/P Pulse Ox O2 Delivery O2 Flow Rate FiO2 09/30/16 05:55 36.6 60 20 143/82 94 Room Air Intake and Output 09/29/16 09/29/16 09/30/16 Cumulative From/Thru 15:00 23:00 07:00 09/27/16 18:38 - 09/30/16 06:45 Intake Total 1571 ml 2113 ml 73627 ml Output Total 2600 ml 5850 ml Balance 1571 ml -487 ml 5601 ml Intake Oral 436 ml 2526 ml IV Total 1571 ml 1677 ml 8925 ml Output Urine Total 2600 ml 5850 ml # Bowel Movements 0 Exam General: Alert, Oriented X3, NAD Head: Normocephalic, atraumatic Eyes: VIJAY, EOMI, no scleral Icterus Chest: clear to auscultation B/L, no wheezing rales or rhonchi Heart: Regular rate and rhythm. Normal S1, S2, no murmurs noted Abdomen: soft, non-tender. Bowel sounds are normoactive. No guarding or rebound. Extremities: no cyanosis, clubbing or edema. IVs and Medications IV Fluids IVF NS 125 mls/hr Lab and Diagnostics Result Diagram: 09/30/1653409/30/16 0535 Microbiology Microbiology ISH CULT URINE Final 09/29/16-0830 Organism 1 ESCHERICHIA COLI U COLONY COUNT/QUANTITY >100,000 CFU/ml ESCHERICHIA COLI Cefazolin-predicts results for the oral agents, cefaclor,cefdinir, cefpodoximen, cefprozil, cefuroximne axetil, cephalexin and loracarbed when used for therapy of uncomplicated UTI's due to E. coli, K. pneumoniae, and Proteus mirabilis. Cefpodoxime, cefdinir and cefuroxime axetil may be tested individually because some isolates may be susceptible to these agents while testing resistant to cefazolin. (CLSI [id number] pg 53) 1. ESCHERICHIA COLI M.I.C Interp --------- ------ * AMOXICILLIN/CLAVULATE 8 S * AMPICILLIN >=32 R * CEFAZOLIN (CEPHALOSPORIN) UTI 4 S * CEFEPIME <=1 S * CEFTRIAXONE <=1 S * CEFUROXIME SODIUM 4 S * CIPROFLOXACIN >=4 R * ERTAPENEM <=0.5 S * GENTAMICIN <=1 S * IMIPENEM <=1 S * LEVOFLOXACIN >=8 R * NITROFURANTOIN <=16 S * TETRACYCLINE <=1 S * TOBRAMYCIN <=1 S * TRIMETHOPRIM/SULFAMETHOXAZOLE <=20 S Microbiology ISH CULT URINE Preliminary 09/28/16 PRELIMINARY ID GRAM NEG DEA, PROBABLE E COLI SUSCEPTIBILITIES TO FOLLOW COLONY COUNT/QUANTITY >100,000 CFU/ml Microbiology ISH INFLUENZA RAPID AG SCREEN Final 09/27/16-1950 RESULT NEGATIVE FOR INFLUENZA TYPE A AND B X-Rays, CTs and MRIs PROCEDURE: X-RAY CHEST, TWO VIEWS ([id number]) INDICATIONS: 71 year-old male with fever and cough for several days. TECHNIQUE: 2 views of the chest were acquired. COMPARISON: None. FINDINGS: Surgical changes and devices: None. Lungs and pleura: No pleural effusions or pneumothorax. Lungs are clear. Lung volumes are decreased, with basilar bronchovascular crowding. Mediastinum: Mediastinal contours are normal. Heart size is normal. Bones and chest wall: No suspicious bony abnormalities. Soft tissues appear unremarkable. IMPRESSION: Decreased lung volumes, without acute cardiopulmonary disease. Dictated by: Thomas Chen M.D. on 09/27/2016 at 20:20 Approved by: Thomas Chen M.D. on 09/27/2016 at 20:20 PROCEDURE: CT ABDOMEN AND PELVIS WITH CONTRAST ([id number]) INDICATIONS: sepsis, abn UA, ?pyelo ABDOMEN: Lung bases: Lung bases are clear. Heart size is normal. Solid organs: Liver and spleen are normal in size and enhancement. Hepatic cysts noted. Gallbladder contains small gallstones. Biliary system is non dilated. Pancreas enhances normally. 2.1 cm left adrenal nodule is noted which has density measurements of 36 HU. Kidneys demonstrate normal size and enhancement, without hydronephrosis. Renal cysts are noted. Peritoneum and bowel: Bowel loops demonstrate normal wall thickness and caliber. No free fluid or air. Appendix is fluid-filled. Appendix is enlarged measuring up to 1.4 cm in diameter. No periappendiceal inflammatory change. No wall thickening identified in the appendix. No free fluid noted adjacent to the appendix. Multiple diverticuli noted in the colon without evidence of diverticulitis. Nodes and vessels: No retroperitoneal or mesenteric adenopathy by size criteria. Aorta and inferior vena cava are normal in size. Miscellaneous: No ventral hernias. PELVIS: Genitourinary: Mild, circumferential urinary bladder wall thickening is noted. Small amount of air is noted urinary bladder which could be related to recent catheterization, infection with gas-forming organism or fistulous connection with bowel. Prostate is enlarged. The superior margin of the median lobe of the prostate gland is irregular which could be postsurgical or neoplastic. Please correlate with clinical history. Miscellaneous: No adenopathy. Fat containing left inguinal hernia is noted. Bones: No suspicious bony lesions. No vertebral body compression fractures. Spine degenerative disease and facet arthropathy are noted. IMPRESSION: 1. Fluid filled appendix is enlarged to 1.4 cm in diameter with absence of associated periappendiceal inflammation and periappendiceal fluid. Early acute appendicitis is not excluded. Please correlate with clinical data. 2. Marked prostatic hypertrophy. Superior margin of the prostate gland is nodular and irregular in appearance which could be postsurgical or neoplastic. Please correlate with clinical data. 3. Colonic diverticulosis without evidence diverticulitis. 4. Cholelithiasis. 5. Atherosclerosis. 6. 2.1 cm left adrenal nodule. Recommend dedicated CT scan or MRI of the adrenal and for definitive characterization. 7. Air in the urinary bladder which could be related to recent catheterization , infection or fistulous connection with bowel. Please correlate with clinical data. Dictated by: Simona Ray MD, PhD on 09/28/2016 at 7:08 Approved by: Simona Ray MD, PhD on 09/28/2016 at 7:08 12-lead ECG Twelve-lead EKG: Sinus tachycardia rate of 127 there appears to be some supraventricular bigeminy noted along with right bundle branch block and left anterior fascicular block. No old EKG present for comparison. Assessment & Plan Patient is a 71-year-old male with history of BPH who had a TURP procedure done on September [address] Jaeger of [facility], had his Aguila catheter removed yesterday prior to admission and finished 6 weeks treatment with Cipro. He presented to [facility] ED with some urinary frequency and burning, mild nausea el movements. ED evaluation revealed WBC of 21.2 with 88% polys 4% lymphs; urine showed cloudy appearance large occult blood moderate leukocyte esterase 3-10 RBCs, 6-10 WBCs no epithelial cells and few bacteria; lactate level was noted to be 1.6 and troponin less than 0.010. CT of abdomen and pelvis with IV contrast which revealed findings likely consistent with cystitis. There was air in the bladder likely related to the patient's recent surgery. There is nodular enlarged prostate which appears to project into the lumen of the bladder. There is a left adrenal mass seen which radiology recommended follow-up on final report is pending. Patient was admitted for further evaluation and management. # Sepsis with urinary tract infection as source, acute, present on admission, improving - IV fluid hydration NS 125 mls/hr - Urine culture: E. Coli - D/C IV Rocephin - Blood cultures pending - Patient was discussed by the ER doctor with Dr. Leach covering for urology and recommended IV antibiotics. Dr. Leach agreed with IV Rocephin - WBC down to 8.5; WBC 21.2 on admission - Start Keflex 500 mg PO qid - Repeat CBC in the morning - Plan D/ tomorrow # Hypertension, present on admission, chronic -Continue home meds of lisinopril 20 mg and atenolol 100 mg #Hyperlipidemia: -Continue atorvastatin 5 mg #Gastroesophageal reflux disease: -Continue PPI. DVT prophylaxis: Placed on subcutaneous heparin CODE STATUS: Patient is full code. VTE Prophylaxis: Sub-Q Heparin (Unfractionated) VTE Mechanical Devices: Venous Foot Pump Resuscitation Status: CPR: Attempt Resuscitation Attending Statement The patient was seen and examined together with Dr. Coronel on 09/30/2016 and I agree with the history, exam and plan as outlined in the note above. JESSE CORONEL DO Sep 30, 2016 13:23 Aman Collier MD Oct 01, 2016 09:47
[2016-09-30 13:41] VITALS: BP 122/71; PULSE 59; RESP 18; O2SAT 96
--- NOTE | 2016-09-30 15:20 | NUR ---
Social Work-readiness for discharge: Data:Pt is on day 2 of hospitalization for sepsis per H&P. Pt is not medically stable, anticipate another day or two. Pt has been up independent in his room. Pt's to provide transport home at discharge. No anticipated discharge needs. SW will continue to follow if needs arise. Assessment:Pt who is independent at baseline. Plan:Pt to discharge home when medically stable via POV. No anticipated discharge needs. SW will continue to follow if needs arise. JESUS Khoury
--- NOTE | 2016-09-30 18:34 | NUR ---
Shift report Cooperative pt, able to make needs known. Uses call light appropriately. Pt denies pain. IV infusing, per orders. VSS. Pt was disappointed to stay another night, hoping to be d/c tomorrow. Will continue to monitor.
[2016-09-30 21:06] VITALS: BP 117/64; PULSE 66; RESP 18; O2SAT 96
[2016-10-01] MEDS: Sodium Chloride LOK Flush 10 mL Syringe IVFLUSH SCH ×2 (00:27→08:30)
[2016-10-01] MEDS: Heparin 5,000 Unit/mL Inj SUBQ SCH ×3 (00:27→10:51)
[2016-10-01] MEDS: 0.9% Sodium Chloride 1,000 ML IV SCH ×2 (00:53→04:00)
--- NOTE | 2016-10-01 04:11 | NUR ---
PT COMPLAINTS Pt has had intermittent c/o headache. Pt declined to use tylenol, as "it upsets my stomach." Pt offered an ice pack which helped to alleviate some headache pain. Pt also concerned about "dry heaving and wanting to throw up" when taking po abx. Pt states that he "felt that way, I dry heaved and felt sick that I couldn't take Cipro." Pt given prn zofran prior to dose of Keflex, pt did not have dry heaves, but states, "I had an upset stomach a few hours later." Pt also states, "I've had some night sweats for a couple nights, not bad though, I've had them before with pneumonia." Pt has dry, unproductive cough. No fever. Continue to monitor. Call light in reach. Intentional rounding.
[2016-10-01 05:27] VITALS: BP 139/76; PULSE 54; RESP 18; O2SAT 96
[2016-10-01 06:41] LABS: BASOPHILS % (AUTO) 0.4 % (0-3); MONOCYTES % (AUTO) 10.8 % (4-12); Mean Corpuscular Hemoglobin 27.7 pg (27.0-35.0); Mean Corpuscular Volume 83.8 fL (81-100); NEUTROPHILS % (AUTO) 69.3 % (40-74); Platelet Count 235 bil/L (150-400)
[2016-10-01] MEDS: Pantoprazole 20 mg ER24 Tablet PO SCH (06:50)
[2016-10-01 09:08] VITALS: BP 142/81; PULSE 58; RESP 21; O2SAT 92
--- NOTE | 2016-10-01 12:50 | PCM.DIMED ---
JESSE CORONEL DO 10/01/16 1250: Discharge Instructions Date of Service Oct 01, 2016 Dates of Hospitalization Sep 28, 2016 at 00:59 Discharge Diagnosis Discharge Diagnosis # Sepsis with urinary tract infection as source, acute, present on admission, improving # Hypertension, present on admission, chronic # Hyperlipidemia, chronic, stable # Gastroesophageal reflux disease, chronic, stable Medication Instructions 1. Continue taking Keflex 500 mg by mouth 4 times a day for 7 days for urinary tract infection. 2. Take Zofran 8 mg by mouth up to three times a day if needed for nausea. Try to take Zofran once daily. Do not exceed the recommended dose as it may affect the electrical activity of your heart (QT interval prolongation), which can pre- dispose patient to develop an abnormal and potentially fatal heart rhythm, especially when taken with Keflex. Please call [phone] if you develop irregular heart palpitations, chest pain, shortness of breath, dizziness, loss of consciousness. Test Results PROCEDURE: X-RAY CHEST, TWO VIEWS ([id number]) INDICATIONS: 71 year-old male with fever and cough for several days. TECHNIQUE: 2 views of the chest were acquired. COMPARISON: None. FINDINGS: Surgical changes and devices: None. Lungs and pleura: No pleural effusions or pneumothorax. Lungs are clear. Lung volumes are decreased, with basilar bronchovascular crowding. Mediastinum: Mediastinal contours are normal. Heart size is normal. Bones and chest wall: No suspicious bony abnormalities. Soft tissues appear unremarkable. IMPRESSION: Decreased lung volumes, without acute cardiopulmonary disease. Dictated by: Thomas Chen M.D. on 09/27/2016 at 20:20 Approved by: Thomas Chen M.D. on 09/27/2016 at 20:20 PROCEDURE: CT ABDOMEN AND PELVIS WITH CONTRAST ([id number]) INDICATIONS: sepsis, abn UA, ?pyelo ABDOMEN: Lung bases: Lung bases are clear. Heart size is normal. Solid organs: Liver and spleen are normal in size and enhancement. Hepatic cysts noted. Gallbladder contains small gallstones. Biliary system is non dilated. Pancreas enhances normally. 2.1 cm left adrenal nodule is noted which has density measurements of 36 HU. Kidneys demonstrate normal size and enhancement, without hydronephrosis. Renal cysts are noted. Peritoneum and bowel: Bowel loops demonstrate normal wall thickness and caliber. No free fluid or air. Appendix is fluid-filled. Appendix is enlarged measuring up to 1.4 cm in diameter. No periappendiceal inflammatory change. No wall thickening identified in the appendix. No free fluid noted adjacent to the appendix. Multiple diverticuli noted in the colon without evidence of diverticulitis. Nodes and vessels: No retroperitoneal or mesenteric adenopathy by size criteria. Aorta and inferior vena cava are normal in size. Miscellaneous: No ventral hernias. PELVIS: Genitourinary: Mild, circumferential urinary bladder wall thickening is noted. Small amount of air is noted urinary bladder which could be related to recent catheterization, infection with gas-forming organism or fistulous connection with bowel. Prostate is enlarged. The superior margin of the median lobe of the prostate gland is irregular which could be postsurgical or neoplastic. Please correlate with clinical history. Miscellaneous: No adenopathy. Fat containing left inguinal hernia is noted. Bones: No suspicious bony lesions. No vertebral body compression fractures. Spine degenerative disease and facet arthropathy are noted. IMPRESSION: 1. Fluid filled appendix is enlarged to 1.4 cm in diameter with absence of associated periappendiceal inflammation and periappendiceal fluid. Early acute appendicitis is not excluded. Please correlate with clinical data. 2. Marked prostatic hypertrophy. Superior margin of the prostate gland is nodular and irregular in appearance which could be postsurgical or neoplastic. Please correlate with clinical data. 3. Colonic diverticulosis without evidence diverticulitis. 4. Cholelithiasis. 5. Atherosclerosis. 6. 2.1 cm left adrenal nodule. Recommend dedicated CT scan or MRI of the adrenal and for definitive characterization. 7. Air in the urinary bladder which could be related to recent catheterization , infection or fistulous connection with bowel. Please correlate with clinical data. Dictated by: Simona Ray MD, PhD on 09/28/2016 at 7:08 Approved by: Simona Ray MD, PhD on 09/28/2016 at 7:08 Diet No restrictions Activity No restrictions Call your provider Fever or Chills, Shortness of breath, Bleeding, Chest pain, Vomitting, Excessive diarrhea, Weakness (unilateral) Patient Instructions Follow-up Provider: Abraham Paul MD Follow-up with PCP in: 2 weeks Follow-up in: 2 weeks (Follow up with Dr. Jaeger of [facility]) Aman Collier MD 10/02/16 1031: JESSE CORONEL 4, 2017 12:50 Aman Collier MD Oct 02, 2016 10:31
[2016-10-01] MEDS ORDERED: CEPH-512 PO (12:52)
[2016-10-01] MEDS ORDERED: ONDA-54 PO (12:54)
--- NOTE | 2016-10-01 13:31 | NUR ---
Social Work-discharge: Data:EMR Reviewed. Pt is on day 3 of hospitalization for sepsis per H&P. Pt is medically stable for discharge. Pt has been up independent in his room. Pt's to provide transport home today. No discharge needs identified. All updated and agreeable to plan. Assessment:pt who is independent at baseline. Plan:Pt to discharge home today via POV. No discharge needs identified. All updated and agreeable to plan. JESUS Khoury
--- NOTE | 2016-10-01 13:52 | NUR ---
Discharge Pt d/c home as ordered. Removed IV, catheter intact, no bleeding. Provided pt with d/c paperwork and instructions, including prescriptions. All questions answered. Escorted pt to front entrance, home in private vehicle with family.
--- NOTE | 2016-10-01 17:23 | PCM.DC.MED ---
Discharge Summary Date of Service Oct 01, 2016 Dates of Hospitalization Date of Hospital Admission Sep 28, 2016 at 00:59 Date of Discharge: Oct 01, 2016 Providers: Admitting Physician: Analilia Iraheta MD Primary Care Physician: Abraham Paul MD Attending Physician: Analilia Iraheta MD Diagnosis at Time of Discharge Diagnosis at Time of Discharge # Sepsis with urinary tract infection as source, acute, present on admission, resolved # Hypertension, present on admission, chronic # Hyperlipidemia, chronic, stable # Gastroesophageal reflux disease, chronic, stable Procedures XRay, CTs & MRIs PROCEDURE: X-RAY CHEST, TWO VIEWS ([id number]) INDICATIONS: 71 year-old male with fever and cough for several days. TECHNIQUE: 2 views of the chest were acquired. COMPARISON: None. FINDINGS: Surgical changes and devices: None. Lungs and pleura: No pleural effusions or pneumothorax. Lungs are clear. Lung volumes are decreased, with basilar bronchovascular crowding. Mediastinum: Mediastinal contours are normal. Heart size is normal. Bones and chest wall: No suspicious bony abnormalities. Soft tissues appear unremarkable. IMPRESSION: Decreased lung volumes, without acute cardiopulmonary disease. Dictated by: Thomas Chen M.D. on 09/27/2016 at 20:20 Approved by: Thomas Chen M.D. on 09/27/2016 at 20:20 PROCEDURE: CT ABDOMEN AND PELVIS WITH CONTRAST ([id number]) INDICATIONS: sepsis, abn UA, ?pyelo ABDOMEN: Lung bases: Lung bases are clear. Heart size is normal. Solid organs: Liver and spleen are normal in size and enhancement. Hepatic cysts noted. Gallbladder contains small gallstones. Biliary system is non dilated. Pancreas enhances normally. 2.1 cm left adrenal nodule is noted which has density measurements of 36 HU. Kidneys demonstrate normal size and enhancement, without hydronephrosis. Renal cysts are noted. Peritoneum and bowel: Bowel loops demonstrate normal wall thickness and caliber. No free fluid or air. Appendix is fluid-filled. Appendix is enlarged measuring up to 1.4 cm in diameter. No periappendiceal inflammatory change. No wall thickening identified in the appendix. No free fluid noted adjacent to the appendix. Multiple diverticuli noted in the colon without evidence of diverticulitis. Nodes and vessels: No retroperitoneal or mesenteric adenopathy by size criteria. Aorta and inferior vena cava are normal in size. Miscellaneous: No ventral hernias. PELVIS: Genitourinary: Mild, circumferential urinary bladder wall thickening is noted. Small amount of air is noted urinary bladder which could be related to recent catheterization, infection with gas-forming organism or fistulous connection with bowel. Prostate is enlarged. The superior margin of the median lobe of the prostate gland is irregular which could be postsurgical or neoplastic. Please correlate with clinical history. Miscellaneous: No adenopathy. Fat containing left inguinal hernia is noted. Bones: No suspicious bony lesions. No vertebral body compression fractures. Spine degenerative disease and facet arthropathy are noted. IMPRESSION: 1. Fluid filled appendix is enlarged to 1.4 cm in diameter with absence of associated periappendiceal inflammation and periappendiceal fluid. Early acute appendicitis is not excluded. Please correlate with clinical data. 2. Marked prostatic hypertrophy. Superior margin of the prostate gland is nodular and irregular in appearance which could be postsurgical or neoplastic. Please correlate with clinical data. 3. Colonic diverticulosis without evidence diverticulitis. 4. Cholelithiasis. 5. Atherosclerosis. 6. 2.1 cm left adrenal nodule. Recommend dedicated CT scan or MRI of the adrenal and for definitive characterization. 7. Air in the urinary bladder which could be related to recent catheterization , infection or fistulous connection with bowel. Please correlate with clinical data. Dictated by: Simona Ray MD, PhD on 09/28/2016 at 7:08 Approved by: Simona Ray MD, PhD on 09/28/2016 at 7:08 ECG 12 Lead Twelve-lead EKG: Sinus tachycardia rate of 127 there appears to be some supraventricular bigeminy noted along with right bundle branch block and left anterior fascicular block. No old EKG present for comparison. Brief History Per Admitting Physician: Analilia Iraheta MD This is a 71-year-old male who has a history of BPH who had a TURP procedure done on September [address] Jaeger of [facility]. He had his Aguila catheter removed today prior to admission. He had been on 6 weeks of by mouth Cipro and took his last dose yesterday. He does have some urinary frequency and burning although was not sure whether that is related to his recent procedure. He has had some mild nausea denies any vomiting denies any alteration in bowel movements. Denies any abdominal pain. His evaluation in the emergency room includes a white blood cell count of 21.2 with 88% polys 4% lymphs. His urine shows cloudy appearance large occult blood moderate leukocyte esterase 3-10 RBCs, 6-10 WBCs no epithelial cells and few bacteria. Lactate level was noted to be 1.6 and troponin less than 0.010. He does complain of a dry cough but he notes that is up from being on lisinopril. He also had a chest x-ray which did not show any acute cardiopulmonary disease. He did have CT of abdomen and pelvis with IV contrast which revealed findings likely consistent with cystitis. There was air in the bladder likely related to the patient's recent surgery. There is nodular enlarged prostate which appears to project into the lumen of the bladder. There is a left adrenal mass seen which radiology recommended follow-up on final report is pending. Hospital Course Patient is a 71-year-old male with history of BPH who had a TURP procedure done on September [address] Jaeger of [facility], had his Aguila catheter removed yesterday prior to admission and finished 6 weeks treatment with Cipro. He presented to [facility] ED with some urinary frequency and burning, mild nausea el movements. ED evaluation revealed WBC of 21.2 with 88% polys 4% lymphs; urine showed cloudy appearance large occult blood moderate leukocyte esterase 3-10 RBCs, 6-10 WBCs no epithelial cells and few bacteria; lactate level was noted to be 1.6 and troponin less than 0.010. CT of abdomen and pelvis with IV contrast which revealed findings likely consistent with cystitis. There was air in the bladder likely related to the patient's recent surgery. There is nodular enlarged prostate which appears to project into the lumen of the bladder. There is a left adrenal mass seen which radiology recommended follow-up on final report is pending. Patient was admitted for further evaluation and management. # Sepsis with urinary tract infection as source, acute, present on admission, resolved - IV fluid hydration NS 125 mls/hr - Urine culture: E. Coli - D/C IV Rocephin, start Keflex 500 mg PO qid - Blood cultures pending - WBC down to 7.1; WBC 21.2 on admission - D/C home with Keflex PO 500 mg qid x 7 days - Follow up w/ Dr Jaeger # Hypertension, present on admission, chronic -Continue home meds of lisinopril 20 mg and atenolol 100 mg #Hyperlipidemia: -Continue atorvastatin 5 mg #Gastroesophageal reflux disease: -Continue PPI. Status: Stable DVT prophylaxis: Subcutaneous heparin CODE STATUS: Patient is full code. Disposition: Home Exam Vital Signs (Last) Date Time Temp Pulse Resp B/P Pulse Ox O2 Delivery O2 Flow Rate FiO2 10/01/16 09:08 37.1 58 21 142/81 92 Room Air Exam General: Alert, Oriented X3, NAD Head: Normocephalic, atraumatic Eyes: VIJAY, EOMI, no scleral Icterus Chest: clear to auscultation B/L, no wheezing rales or rhonchi Heart: Regular rate and rhythm. Normal S1, S2, no murmurs noted Abdomen: soft, non-tender. Bowel sounds are normoactive. No guarding or rebound. Extremities: no cyanosis, clubbing or edema. Test 09/27/16 19:05 09/28/16 01:40 09/28/16 05:50 09/28/16 09:16 Urine Color Yellow (YELLOW) Urine Appearance Cloudy (CLEAR,HAZY) Urine pH 7.5 (5.0-8.0) Urine Specific [place] 1.020 (1.003-1.035) Urine Protein 100mg/dL (NEG,TRACE) Urine Glucose (UA) Negativemg/dL (NEGATIVE) Urine Ketones Negativemg/dL (NEGATIVE) Urine Occult Blood Large (NEGATIVE) Urine Nitrite Negative (NEGATIVE) Urine Bilirubin Negative (NEGATIVE) Urine Urobilinogen Normalmg/dL (NORMAL) Urine Leukocyte Esterase Moderate (NEGATIVE) Urine RBC 3-10/hpf (0-2) Urine WBC 6-10/hpf (0-5) Urine Epithelial Cells None/hpf (NONE-MOD) Urine Crystals None seen (NONE SEEN) Urine Bacteria Few/hpf (NONE-FEW) Urine Hyaline Casts None/lpf (NONE) Urine Granular Casts None seen (NONE SEEN) Urine Waxy Casts None seen (NONE SEEN) Urine Red Blood Cell Casts None seen (NONE SEEN) Urine White Blood Cell Casts None seen (NONE SEEN) Urine Mucus None seen (None Seen) Urine Trichomonas None seen (NONE SEEN) Urine Yeast None (NONE SEEN) Urinalysis Comment None Urine Culture Reflexed Indicated Pro-B-Type Natriuretic Peptide 154.8pg/mL (0-376) Hold [place] Top Tube Received (Received) Hemoglobin A1c 6.2% (4.8-5.6) Phosphorus Level 3.2mg/dL (2.5-4.9) Magnesium Level 1.5mg/dL (1.6-2.6) Lactic Acid Level 1.6mmol/L (0.4-2.0) Troponin T < 0.010ug/L (0.0-0.011) Test 09/30/16 05:35 10/01/16 05:40 Procalcitonin 0.25ng/mL (See Comment) White Blood Count 7.1th/mm3 (3.8-10.1) Red Blood Count 4.33mil/mm3 (4.40-5.80) Hemoglobin 12.0g/dL (13.8-17.2) Hematocrit 36.3% (41.0-50.0) Mean Corpuscular Volume 83.8fL (81-100) Mean Corpuscular Hemoglobin 27.7pg (27.0-35.0) Mean Corpuscular Hemoglobin Concent 33.1% (32.0-37.0) Red Cell Distribution Width 13.9% (12.3-15.4) Platelet Count 235bil/L (150-400) Neutrophils (%) (Auto) 69.3% (40-74) Lymphocytes (%) (Auto) 16.2% (14-46) Monocytes (%) (Auto) 10.8% (4-12) Eosinophils (%) (Auto) 2.0% (0-5) Basophils (%) (Auto) 0.4% (0-3) Sodium Level 140mEq/L (134-144) Potassium Level 4.0mEq/L (3.5-5.2) Chloride Level 106mEq/L (97-108) Carbon Dioxide Level 22mmol/L (18-29) Blood Urea Nitrogen 15mg/dL (8-27) Creatinine 0.94mg/dL (0.76-1.27) Estimat Glomerular Filtration Rate 85mL/min (>59) Glucose Level 105mg/dL (60-99) Calcium Level 9.2mg/dL (8.5-10.1) Total Bilirubin 0.4mg/dL (0.0-1.2) Aspartate Amino Transf (AST/SGOT) 30U/L (0-50) Alanine Aminotransferase (ALT/SGPT) 56U/L (0-44) Alkaline Phosphatase 133U/L (25-160) Total Protein 5.5g/dL (6.4-8.4) Albumin 3.3g/dL (3.4-5.0) Microbiology Results Microbiology ISH CULT URINE Final 09/29/16-829 Organism 1 ESCHERICHIA COLI U COLONY COUNT/QUANTITY >100,000 CFU/ml ESCHERICHIA COLI Cefazolin-predicts results for the oral agents, cefaclor,cefdinir, cefpodoximen, cefprozil, cefuroximne axetil, cephalexin and loracarbed when used for therapy of uncomplicated UTI's due to E. coli, K. pneumoniae, and Proteus mirabilis. Cefpodoxime, cefdinir and cefuroxime axetil may be tested individually because some isolates may be susceptible to these agents while testing resistant to cefazolin. (CLSI Q145-N73 pg 53) 1. ESCHERICHIA COLI M.I.C Interp --------- ------ * AMOXICILLIN/CLAVULATE 8 S * AMPICILLIN >=32 R * CEFAZOLIN (CEPHALOSPORIN) UTI 4 S * CEFEPIME <=1 S * CEFTRIAXONE <=1 S * CEFUROXIME SODIUM 4 S * CIPROFLOXACIN >=4 R * ERTAPENEM <=0.5 S * GENTAMICIN <=1 S * IMIPENEM <=1 S * LEVOFLOXACIN >=8 R * NITROFURANTOIN <=16 S * TETRACYCLINE <=1 S * TOBRAMYCIN <=1 S * TRIMETHOPRIM/SULFAMETHOXAZOLE <=20 S Microbiology ISH CULT URINE Preliminary 09/28/16-1048 PRELIMINARY ID GRAM NEG DEA, PROBABLE E COLI SUSCEPTIBILITIES TO FOLLOW COLONY COUNT/QUANTITY >100,000 CFU/ml Microbiology ISH INFLUENZA RAPID AG SCREEN Final 09/27/16 RESULT NEGATIVE FOR INFLUENZA TYPE A AND B Discharge Medications Discharge Medications Aspirin (Aspirin) 81 Mg Tablet 81 MG PO DAILY (Reported) Atenolol (Atenolol) 100 Mg Tablet 100 MG PO DAILY (Reported) Cephalexin (Keflex) 500 Mg Capsule 500 MG PO QID Prescribed by: JESSE CORONEL DO Lisinopril (Lisinopril) 20 Mg Tablet 20 MG PO DAILY (Reported) Lovastatin (Lovastatin) 20 Mg Tablet 20 MG PO HS (Reported) Omeprazole (Omeprazole) 20 Mg Capsule.dr 20 MG PO DAILY (Reported) Ondansetron (Ondansetron) 8 Mg Tablet 8 MG PO TID Prescribed by: JESSE CORONEL DO Tamsulosin (Flomax) 0.4 Mg Capsule 0.8 MG PO HS (Reported) As needed Ibuprofen (Ibuprofen) 200 Mg Capsule 200 MG PO QID PRN PRN For Pain (Reported) Additional med instructions 1. Continue taking Keflex 500 mg by mouth 4 times a day for 7 days for urinary tract infection. 2. Take Zofran 8 mg by mouth up to three times a day if needed for nausea. Try to take Zofran once daily. Do not exceed the recommended dose as it may affect the electrical activity of your heart (QT interval prolongation), which can pre- dispose patient to develop an abnormal and potentially fatal heart rhythm, especially when taken with Keflex. Please call [phone] if you develop irregular heart palpitations, chest pain, shortness of breath, dizziness, loss of consciousness. Followup Plan Discharge Diet: No restrictions Discharge Activity: No restrictions Follow-up Provider: Abraham Paul MD Follow-up with PCP in: 2 weeks Follow-up in: 2 weeks (Follow up with Dr. Jaeger of [facility]) Time spent 30 minutes Attending Statement The patient was seen and examined together with Dr. Coronel on 10/01/2015 and I agree with the history, exam and plan as outlined in the note above. JESSE CORONEL DO Oct 01, 2016 17:23 Aman Collier MD Oct 02, 2016 10:31
== END 2016-10-01 13:48 | disposition home or self-care (01) | DRG 872 ==
LOC: SED 18:26 → MPC 09-28 00:59
PROVIDERS: ADMIT Specialist; ATTEND Specialist
DX: A41.9 Sepsis, unspecified organism (principal); I10 Essential (primary) hypertension; E78.5 Hyperlipidemia, unspecified; I45.10 Unspecified right bundle-branch block; N40.0 Benign prostatic hyperplasia without lower urinary tract symptoms; K21.9 Gastro-esophageal reflux disease without esophagitis; Z79.82 Long term (current) use of aspirin; Z98.890 Other specified postprocedural states